=== PATIENT | female | born 1935 | race Caucasian/White ===

== ENCOUNTER → 2018-07-28 | Outpatient (CLI) | payer MEDICARE, OTHER ==
[~2018-07-28] MED LIST: ASPI-496 PO; ASPI-515 PO; LEVO125T PO; LEVO500T47 PO; cholesterol med
== END | disposition home or self-care (01) ==
LOC: WOUND 12:59
PROVIDERS: ATTEND Internal Medicine
DX: S81.812A Laceration without foreign body, left lower leg, initial encounter (principal); E03.9 Hypothyroidism, unspecified; J45.909 Unspecified asthma, uncomplicated; G43.809 Other migraine, not intractable, without status migrainosus; Z87.891 Personal history of nicotine dependence; W01.0XXA Fall on same level from slipping, tripping and stumbling without subsequent striking against object, initial encounter; Y93.89 Activity, other specified; Y92.89 Other specified places as the place of occurrence of the external cause; Y99.8 Other external cause status
CPT/HCPCS: 11042; G0463; WOU0463

== ENCOUNTER → 2018-09-30 | Outpatient (CLI) | payer MEDICARE, OTHER ==
[~2018-09-30] MED LIST changes: +ALBU8.5H8 INH; +CALCIUM PO
== END | disposition home or self-care (01) ==
LOC: STAR 10:59
PROVIDERS: ATTEND Obstetrics & Gynecology Female Pelvic Medicine and Reconstructive Surgery
DX: Z01.818 Encounter for other preprocedural examination (principal); R00.1 Bradycardia, unspecified; N39.3 Stress incontinence (female) (male); N36.41 Hypermobility of urethra; Z88.1 Allergy status to other antibiotic agents
CPT/HCPCS: 71046; 93005

== ENCOUNTER 2018-10-13 12:18 | Day surgery (SDC) | payer MEDICARE, OTHER ==
[~2018-10-13] VITALS: Ht 157.5 cm; Wt 68.7 kg
[2018-10-13] MEDS ORDERED: LACTATED RINGERS 1,000 ML IV SCH ×2 (12:48→15:08)
[2018-10-13 13:00] VITALS: BP 196/83
[2018-10-13] MEDS ORDERED: GABAPENTIN 300 MG CAPSULE PO ONE (13:00)
[2018-10-13] MEDS ORDERED: ACETAMINOPHEN 500 MG TABLET PO ONE (13:00)
[2018-10-13] MEDS ORDERED: GENTAMICIN 80 MG/2 ML ONE (13:32)
[2018-10-13] MEDS ORDERED: VANCOMYCIN 500 MG ONE (13:32)
[2018-10-13] MEDS ORDERED: BUPIVACAINE/PF-EPI 0.5% 1:200K ONE (13:32)
[2018-10-13] MEDS ORDERED: BUPIVACAINE 0.25% ONE (13:32)
[2018-10-13] MEDS ORDERED: FLUORESCEIN SODIUM 500 MG/5 ML ONE (13:32)
[2018-10-13] MEDS ORDERED: ONDANSETRON 2MG/ML, 2ML ONE (14:11)
[2018-10-13] MEDS ORDERED: PROPOFOL 10 MG/ML, 20ML ONE (14:11)
[2018-10-13] MEDS ORDERED: DEXAMETHASONE 4 MG/ML, 1ML ONE ×2 (14:11)
[2018-10-13] MEDS ORDERED: FENTANYL PF 250 MCG/5ML ONE (14:11)
[2018-10-13] MEDS ORDERED: CEFOTETAN PMX 2GM/50ML 50 ML ONE (14:14)
[2018-10-13] MEDS ORDERED: THROMBIN 5,000 UNIT VIAL TP ONE (14:24)
[2018-10-13] MEDS ORDERED: hydrALAzine 20 MG/ML, 1ML IV PRN (14:30)
[2018-10-13] MEDS ORDERED: OXYcodone 5 MG/5 ML ORAL.SOL UDC PO PRN (14:30)
[2018-10-13] MEDS ORDERED: HYDROmorphone 1 MG/ML, 1ML IV PRN (14:30)
[2018-10-13] MEDS ORDERED: MORPHINE SULFATE 4 MG/ML, 1ML IVPush PRN (14:30)
[2018-10-13] MEDS ORDERED: FENTANYL PF 100 MCG/2ML IV PRN (14:30)
[2018-10-13] MEDS ORDERED: PROMETHAZINE 25 MG SUPP PR PRN (14:30)
[2018-10-13] MEDS ORDERED: ONDANSETRON 2MG/ML, 2ML IV PRN (14:30)
[2018-10-13] MEDS ORDERED: PROMETHAZINE 12.5 MG SUPP PR PRN (14:30)
[2018-10-13] MEDS ORDERED: LABETALOL 5MG/ML, 20ML IV PRN (14:30)
[2018-10-13] MEDS ORDERED: PROMETHAZINE 25 MG/ML, 1ML IM PRN ×2 (14:30)
[2018-10-13] MEDS ORDERED: MEPERIDINE/PF 25MG/0.5ML IVPush PRN (14:30)
[2018-10-13] MEDS ORDERED: PROMETHAZINE 25 MG/ML, 1ML IV PRN (14:30)
[2018-10-13] MEDS ORDERED: ONDANSETRON ODT 8 MG PO PRN (14:30)
[2018-10-13] MEDS ORDERED: OXYcodone 5 MG/5 ML ORAL.SOL UDC ONE (15:21)
[2018-10-13] MEDS ORDERED: HYDROcodone/APAP 5/325 TABLET PO PRN (15:30)
[2018-10-13] MEDS ORDERED: IBUPROFEN 600 MG TABLET PO PRN (15:30)
[2018-10-13] MEDS ORDERED: PROMETHAZINE 12.5 MG SUPP PR ONE (15:30)
[2018-10-13] MEDS ORDERED: ONDANSETRON 2MG/ML, 2ML IVPush PRN (15:30)
== END 2018-10-13 18:00 | disposition home or self-care (01) ==
LOC: OUT 12:18
PROVIDERS: ATTEND Obstetrics & Gynecology Female Pelvic Medicine and Reconstructive Surgery
DX: N39.46 Mixed incontinence (principal); J45.909 Unspecified asthma, uncomplicated; G43.909 Migraine, unspecified, not intractable, without status migrainosus; Z90.710 Acquired absence of both cervix and uterus; Z98.890 Other specified postprocedural states; Z72.89 Other problems related to lifestyle
CPT/HCPCS: 57288; J1100; J1580; J2405; J2704; J3010; J3370; J3490; J7120; C1771

== ENCOUNTER → 2020-05-19 | Outpatient (CLI) | payer MEDICARE, OTHER | END | disposition home or self-care (01) | LOC: CFH 09:00 | PROVIDERS: ATTEND Family Medicine | DX: R19.7 Diarrhea, unspecified (principal); R10.9 Unspecified abdominal pain; R10.2 Pelvic and perineal pain | CPT/HCPCS: 76700; 76830 ==